=== PATIENT | female | born 1965 ===

== ENCOUNTER 2022-01-30 09:47 | Outpatient (CLI) | payer OTHER ==
[~2022-01-30 09:47] MED LIST: NORVASC5 MG; ZYRTEC10 MG
== END 2022-01-30 09:50 | disposition home or self-care (01) ==
LOC: RAD 09:47
PROVIDERS: ATTEND Obstetrics & Gynecology Gynecology
DX: I10 Essential (primary) hypertension (principal)

== ENCOUNTER 2022-08-04 12:11 | Emergency (ER) | payer OTHER ==
[~2022-08-04] VITALS: Ht 182.9 cm; Wt 136.1 kg
[2022-08-04] MEDS ORDERED: ATACAND4 MG PO (12:31)
[2022-08-04] MEDS ORDERED: SINGULAIR 10MG10 MG PO (12:31)
[2022-08-04] MEDS ORDERED: CRESTOR5 MG PO (12:31)
[2022-08-04] MEDS ORDERED: CLEOCIN HCL300 MG PO (16:16)
[2022-08-04] MEDS ORDERED: KETO10TA2 PO (16:16)
== END 2022-08-04 16:48 | disposition home or self-care (01) ==
LOC: ER 12:11
DX: J03.90 Acute tonsillitis, unspecified (principal); Z88.0 Allergy status to penicillin; Z20.822 Contact with and (suspected) exposure to COVID-19